=== PATIENT | female | born 1990 | race Native Hawaiian/Other Pacific Islander ===

== ENCOUNTER 2017-04-16 10:41 | Outpatient (CLI) | payer OTHER | END 2017-04-16 12:00 | disposition home or self-care (01) | LOC: MAMMO 10:41 | DX: N63.10 Unspecified lump in the right breast, unspecified quadrant (principal) ==

== ENCOUNTER 2017-04-24 08:42 | Outpatient (CLI) | payer OTHER | END 2017-04-24 09:45 | disposition home or self-care (01) | LOC: US 08:42 | DX: N64.4 Mastodynia (principal) ==

== ENCOUNTER 2019-05-29 11:14 | Outpatient (CLI) | payer OTHER | END 2019-05-29 19:30 | disposition home or self-care (01) | LOC: MAMMO 11:14 | DX: R92.2 Inconclusive mammogram (principal) ==

== ENCOUNTER 2021-03-09 08:36 | Outpatient (CLI) | payer OTHER | END 2021-03-09 19:00 | disposition home or self-care (01) | LOC: MAMMO 08:36 | PROVIDERS: ATTEND Nurse Practitioner | DX: N63.10 Unspecified lump in the right breast, unspecified quadrant (principal); N64.59 Other signs and symptoms in breast | CPT/HCPCS: G0279 ==